=== PATIENT | male | born 1940 | race Caucasian/White ===

== ENCOUNTER 2019-03-24 02:34 | Inpatient (IN) | payer MEDICARE, BC ==
[~2019-03-24] VITALS: Ht 190.5 cm; Wt 113.0 kg
[2019-03-24] VITALS (11 sets, daily range): BP systolic 122–131; BP diastolic 57–70
[~2019-03-24 02:34] MED LIST: ASPI-10; ATOR20TA PO; BISO1TAB14; DRON400T6 PO; GLIP-126 PO; KETO15CR2 TP; MULT1TAB PO; NITR0.4T48 SL; OCUVITE PO; OMEG1CAP54 PO; RABE20TA25 PO; RAMI5CAP65 PO
[2019-03-24] MEDS ORDERED: LINA5TAB4 PO (02:55)
[2019-03-24] MEDS ORDERED: MAGN400C PO (02:55)
[2019-03-24] MEDS ORDERED: ALLO100T PO (02:55)
[2019-03-24] MEDS ORDERED: ATOR10TA87 PO (02:55)
[2019-03-24] MEDS ORDERED: BISO5TAB PO (02:55)
[2019-03-24] MEDS ORDERED: SENN-93 PO (02:55)
[2019-03-24] MEDS ORDERED: GLIP5TAB13 PO (02:55)
[2019-03-24] MEDS ORDERED: CHOL100046 PO (02:55)
[2019-03-24] MEDS ORDERED: MYCOL15CR TOP (02:55)
[2019-03-24] MEDS ORDERED: DRON400T2 PO (02:55)
[2019-03-24] MEDS ORDERED: COL0.6T PO (02:55)
[2019-03-24] MEDS ORDERED: RIVA15TA PO (02:55)
[2019-03-24] MEDS ORDERED: NITR0.4T51 SL (02:55)
[2019-03-24] MEDS ORDERED: INDA1.255 PO (02:55)
[2019-03-24 02:56] LABS: BASOPHILS % (AUTO) 0.6 % (0-1); EOSINOPHILS # (AUTO) 0.1 X10'3 (0-0.9); EOSINOPHILS % (AUTO) 1.9 % (0-6); HEMATOCRIT 36.6 % (42.0-52.0); HEMOGLOBIN 12.2 g/dl (14.0-17.9); LYMPHOCYTES % (AUTO) 26.6 % (21-51); MEAN CORPUSCULAR HEMOGLOBIN 28.7 PG (27.0-31.0); MEAN CORPUSCULAR HGB CONC 33.3 g/dL (33.0-36.5); MEAN CORPUSCULAR VOLUME 86.4 FL (78-98); MEAN PLATELET VOLUME 7.3 FL (7.4-10.4); MONOCYTES # (AUTO) 0.8 X10'3 (0-0.9); MONOCYTES % (AUTO) 11.3 % (2-12); NEUTROPHILS # (AUTO) 4.4 X10'3 (1.8-7.7); NEUTROPHILS % (AUTO) 59.6 % (42-75); PLATELET COUNT 155 X10'3 (140-440); RED BLOOD COUNT 4.24 X10'6 (4.70-6.10); RED CELL DISTRIBUTION WIDTH 15.4 % (11.5-14.5); WHITE BLOOD COUNT 7.4 X10'3 (4.5-11.0)
[2019-03-24 03:04] LABS: ALANINE AMINOTRANSFERASE 22 U/L (12-78); ALBUMIN/GLOBULIN RATIO 0.9 (1.1-1.5); ALKALINE PHOSPHATASE 68 IU/L (46-116); ANION GAP 10 (8-16); ASPARTATE AMINO TRANSFERASE 13 U/L (10-37); BILIRUBIN,TOTAL 0.9 MG/DL (0.1-1.0); BLOOD UREA NITROGEN 21 MG/DL (7-18); BUN/CREATININE RATIO 11.7 (5.4-32.0); CALCIUM 7.9 MG/DL (8.5-10.1); CHLORIDE 108 MMOL/L (99-107); GLUCOSE 114 MG/DL (70-104); SODIUM 142 MMOL/L (135-145); TOTAL CARBON DIOXIDE 24.3 MMOL/L (24-32); TOTAL PROTEIN 6.2 G/DL (6.4-8.2); eGFR 37 ML/MIN
[2019-03-24 03:11] LABS: MAGNESIUM 1.7 MG/DL (1.5-2.4)
[2019-03-24] MEDS ORDERED: ondansetron/PF 4mg/2ml inj IV PRN (04:45)
[2019-03-24] MEDS ORDERED: magnesium hydroxide 30ml (MOM) UD suspension PO PRN (04:45)
[2019-03-24] MEDS ORDERED: mag hydrox/Alum hydrox/simeth 30ml oral suspension PO PRN (04:45)
[2019-03-24] MEDS ORDERED: acetaminophen 325mg tablet PO PRN (04:45)
[2019-03-24] MEDS ORDERED: nitroGLYCERIN 0.4mg SUBLingual tab SL PRN (04:50)
[2019-03-24] MEDS ORDERED: glucagon, human recombinant 1mg kit SUBCUT PRN (04:55)
[2019-03-24] MEDS ORDERED: dextrose ORAL solution 15 GM/59 ML bottle PO PRN ×2 (04:55)
[2019-03-24] MEDS ORDERED: insulin Lispro (HumaLOG) vial - multi-dose SQ SCH (04:55)
[2019-03-24] MEDS ORDERED: dextrose 50%-water 50ml dispensing syringe IV PRN ×2 (04:55)
[2019-03-24] MEDS ORDERED: MESSAGE TO PHARMACY PO ONE (04:55)
[2019-03-24] MEDS: enoxaparin 60mg/0.6ml syringe SUBCUT SCH ×2 (05:15→20:20)
[2019-03-24] MEDS: enoxaparin 30mg/0.3ml syringe SUBCUT SCH ×2 (05:15→20:19)
[2019-03-24 05:31] LABS: HEMOGLOBIN A1C 6.5 % (4.5-6.2)
--- NOTE | 2019-03-24 06:45 | NUR ---
PT PLACED ON HOSPITAL BED AND RECEIVED SUPPLIES FOR INCONT CARE.
[2019-03-24] MEDS: magnesium oxide 400mg tablet PO SCH (08:00)
[2019-03-24] MEDS: allopurinol 100mg tablet PO SCH (08:00)
[2019-03-24] MEDS: dronedarone hcl 400mg tablet PO SCH ×2 (08:00→20:17)
[2019-03-24] MEDS: HYDROchlorothiazide 25mg tablet PO SCH (08:00)
[2019-03-24] MEDS: atorvastatin 10mg tablet PO SCH (08:00)
[2019-03-24] MEDS: vitamin D (cholecalciferol) 1,000 unit tablet PO SCH (08:00)
[2019-03-24] MEDS: sennosides/docusate sodium tablet PO SCH ×2 (08:00→20:17)
[2019-03-24] MEDS: atenolol 25mg tablet PO SCH (08:00)
--- NOTE | 2019-03-24 08:08 | NUR ---
hospitalist contacted for a drop in bp after receiving one dose of ntg. pt. is not symptomatic.
--- NOTE | 2019-03-24 08:35 | NUR ---
Awaiting hospitalist phone call to answer page, pt remains stable, BPs normalizing.
--- NOTE | 2019-03-24 09:00 | NUR ---
Pt reports CP back, EKG being obtained as well as hospitalist Dr. Massey being paged.
--- NOTE | 2019-03-24 09:15 | NUR ---
Received return call from Dr. Massey and discussed pts troponin trend, earlier medicating pt for CP and pts BP drop from nitro that resolved but now pt having CP again and concerned pt BP will drop again. Received VO for Morphine 2mg IVP Q 4 hrs PRN pain. Discussed report of n/v with Morphine as pt hx, pt is to be premedicated with Zofran 4mg IVP.
[2019-03-24] MEDS ORDERED: morphine 2 MG/ML inj. syringe IV PRN (09:20)
--- NOTE | 2019-03-24 09:49 | NUR ---
Received return call from Dr. Massey, reported critical troponin value of 11.64
[2019-03-24] MEDS ORDERED: fentaNYL/PF 50MCG/1 ML 2ML syringe ONE ×2 (10:18→12:20)
[2019-03-24] MEDS ORDERED: iohexol 350 MG/ML 50ML vial IV ONE (10:18)
[2019-03-24] MEDS ORDERED: iohexol 350MG/ML 100ml bottle IV ONE ×3 (10:18→12:23)
[2019-03-24] MEDS ORDERED: LIDOcaine 1% (10mg/ml)w/preservative injection 20ml MDV ONE (10:18)
[2019-03-24] MEDS ORDERED: midazolam 2 mg/2 ml injection ONE ×4 (10:18→12:20)
[2019-03-24] MEDS ORDERED: heparin 1,000unit/ml 10ml vial 10 ML ONE (11:45)
[2019-03-24] MEDS ORDERED: clopidogrel 300mg tablet ONE (12:37)
--- NOTE | 2019-03-24 13:00 | NUR ---
Received patient from [facility] lab technician. He is drowsy but arousable. VSS. PP per doppler and are present. No bleeding or bruising at rt groin site.
[2019-03-24] MEDS ORDERED: aspirin 81mg tab.chew PO ONE (13:30)
[2019-03-24] MEDS ORDERED: normal saline 1000ml 1,000 ML IV ONE (13:30)
--- NOTE | 2019-03-24 18:20 | NUR ---
Patient in room PCU 3013. I have received report from Kiah HILL and had the opportunity to ask questions and assume patient care.
--- NOTE | 2019-03-24 18:24 | NUR ---
Problems reprioritized. Patient report given, questions answered & plan of care reviewed with LIZ Salmeron.
[2019-03-24] MEDS ORDERED: insulin glargine (Lantus) pen - multi-dose SQ SCH (21:00)
[2019-03-25 03:00] VITALS: BP 124/61
[2019-03-25 06:00] VITALS: BP 138/56
--- NOTE | 2019-03-25 06:10 | NUR ---
Patient in room PCU 3013. I have received report from LIZ Salmeron and had the opportunity to ask questions and assume patient care.
[2019-03-25 06:15] LABS: ALBUMIN 2.8 G/DL (3.4-5.0); ANION GAP 10 (8-16); BLOOD UREA NITROGEN 17 MG/DL (7-18); BUN/CREATININE RATIO 12.3 (5.4-32.0); CALCIUM 8.3 MG/DL (8.5-10.1); CHLORIDE 107 MMOL/L (99-107); CHOL/HDL RATIO 3.7 (0.00-4.99); CHOLESTEROL 92 MG/DL (0-200); CREATININE 1.38 MG/DL (0.60-1.10); GLUCOSE 131 MG/DL (70-104); HDL CHOLESTEROL 25 MG/DL (35-60); LDL CHOLESTEROL 58 MG/DL (50-100); POTASSIUM 4.5 MMOL/L (3.5-5.1); SODIUM 140 MMOL/L (135-145); TOTAL CARBON DIOXIDE 23.5 MMOL/L (24-32); TRIGLYCERIDES 108 MG/DL (20-135); eGFR 50 ML/MIN
--- NOTE | 2019-03-25 06:35 | NUR ---
Problems reprioritized. Patient report given, questions answered & plan of care reviewed with Kiah HILL.
[2019-03-25] MEDS: enoxaparin 60mg/0.6ml syringe SUBCUT SCH (07:27)
[2019-03-25] MEDS: enoxaparin 30mg/0.3ml syringe SUBCUT SCH (07:27)
[2019-03-25] MEDS: vitamin D (cholecalciferol) 1,000 unit tablet PO SCH (07:28)
[2019-03-25] MEDS: sennosides/docusate sodium tablet PO SCH (07:28)
[2019-03-25] MEDS: allopurinol 100mg tablet PO SCH (07:29)
[2019-03-25] MEDS: HYDROchlorothiazide 25mg tablet PO SCH (07:29)
[2019-03-25] MEDS: atenolol 25mg tablet PO SCH (07:29)
[2019-03-25] MEDS: magnesium oxide 400mg tablet PO SCH (07:29)
[2019-03-25] MEDS: atorvastatin 10mg tablet PO SCH (07:29)
[2019-03-25] MEDS ORDERED: lisinopril 5mg tablet PO SCH (08:00)
[2019-03-25] MEDS ORDERED: clopidogrel 75mg tablet PO SCH (08:00)
[2019-03-25] MEDS: dronedarone hcl 400mg tablet PO SCH (08:44)
--- NOTE | 2019-03-25 10:22 | NUR ---
Message to Dr. Massey - Mr. Vicente ([id number]) ambulated without chest pain or shortness of breath. Tolerated well. Kiah, [phone] x [phone].
[2019-03-25] MEDS ORDERED: LISI-642 PO (10:28)
[2019-03-25] MEDS ORDERED: CLOP75TA35 PO (10:28)
[2019-03-25 11:00] VITALS: BP 122/64
--- NOTE | 2019-03-25 11:45 | NUR ---
Patient given instructions on post procedure insertion site care, complications, (such as bleeding from site, bruising, numb or cold extremity), follow-up, bleeding from blood-thinners. DC to care of with instructions and prescriptions.
== END 2019-03-25 11:48 | disposition home or self-care (01) | DRG 246 ==
LOC: ER 02:34 → CMPBEDREQ 10:06 → PCU 3S 10:55 → CMPBEDREQ 19:44
PROVIDERS: ADMIT Internal Medicine; ATTEND Internal Medicine
PROC: 037434Z Dilation of Left Subclavian Artery with Drug-eluting Intraluminal Device, Percutaneous Approach (ICD-10-PCS; principal; 2019-03-24)
PROC: 027034Z Dilation of Coronary Artery, One Artery with Drug-eluting Intraluminal Device, Percutaneous Approach (ICD-10-PCS; 2019-03-24)
PROC: 4A023N7 Measurement of Cardiac Sampling and Pressure, Left Heart, Percutaneous Approach (ICD-10-PCS; 2019-03-24)
PROC: B2111ZZ Fluoroscopy of Multiple Coronary Arteries using Low Osmolar Contrast (ICD-10-PCS; 2019-03-24)
PROC: B2181ZZ Fluoroscopy of Left Internal Mammary Bypass Graft using Low Osmolar Contrast (ICD-10-PCS; 2019-03-24)
PROC: B2131ZZ Fluoroscopy of Multiple Coronary Artery Bypass Grafts using Low Osmolar Contrast (ICD-10-PCS; 2019-03-24)
DX: I21.4 Non-ST elevation (NSTEMI) myocardial infarction (principal); I50.21 Acute systolic (congestive) heart failure; M48.56XA Collapsed vertebra, not elsewhere classified, lumbar region, initial encounter for fracture; N17.9 Acute kidney failure, unspecified; I25.10 Atherosclerotic heart disease of native coronary artery without angina pectoris; C61 Malignant neoplasm of prostate; C67.9 Malignant neoplasm of bladder, unspecified; E78.5 Hyperlipidemia, unspecified; H35.30 Unspecified macular degeneration; I11.0 Hypertensive heart disease with heart failure; I48.0 Paroxysmal atrial fibrillation; E11.42 Type 2 diabetes mellitus with diabetic polyneuropathy; M10.9 Gout, unspecified; K90.0 Celiac disease; N28.9 Disorder of kidney and ureter, unspecified; Z79.01 Long term (current) use of anticoagulants; Z95.0 Presence of cardiac pacemaker; Z88.7 Allergy status to serum and vaccine; Z88.8 Allergy status to other drugs, medicaments and biological substances; Z79.02 Long term (current) use of antithrombotics/antiplatelets; Z79.84 Long term (current) use of oral hypoglycemic drugs; Z82.49 Family history of ischemic heart disease and other diseases of the circulatory system; Z85.46 Personal history of malignant neoplasm of prostate; Z95.1 Presence of aortocoronary bypass graft; Z95.5 Presence of coronary angioplasty implant and graft; Z86.73 Personal history of transient ischemic attack (TIA), and cerebral infarction without residual deficits; I25.2 Old myocardial infarction
CPT/HCPCS: 37236; 93306; 93455; 96374; 96375; 99285; C9600; C9606; 36415; 71045; 80048; 80053; 80061; 82948; 83036; 83735; 83880; 84484; 85025; 93005; 99152; 99153; A6258; C1725; C1760; C1769; C1874; C1876; C1887; C1894; G0378; J1644; J1650; J1815; J2001; J2250; J2270; J2405; J3010; J7030; Q9967